=== PATIENT | male | born 1990 | race Caucasian/White ===

== ENCOUNTER 2020-08-21 07:08 | Emergency (ER) | payer OTHER ==
[~2020-08-21] VITALS: Ht 175.3 cm; Wt 104.5 kg
[2020-08-21] MEDS ORDERED: PROPOFOL 1% 20 ML VIAL IVP ONE (07:12)
[2020-08-21] MEDS ORDERED: LIDOCAINE/PF 2% 5 ML VIAL IM ONE (07:12)
[2020-08-21] MEDS ORDERED: SODIUM CHLORIDE 0.9% 1,000 ML IV ONE (07:15)
[2020-08-21] MEDS ORDERED: ONDANSETRON HCL 4 MG/2 ML VIAL IVP ONE (07:15)
[2020-08-21] MEDS ORDERED: LISI-893 PO (07:15)
[2020-08-21] MEDS ORDERED: MAAL30 PO (07:15)
[2020-08-21] MEDS ORDERED: PB/HYOSCY/ATR/SCOP/LIDO/MAALOX 55 ML BOTTLE PO ONE (07:30)
[2020-08-21 07:44] LABS: BASOPHILS % (AUTO) 0.4 % (0.0-2.0); EOSINOPHILS % (AUTO) 1.9 % (1.0-6.0); HEMATOCRIT 43.6 % (41-53); HEMOGLOBIN 14.7 g/dL (13.5-17.5); LYMPHOCYTES # (AUTO) 2.6 K/uL (1.0-4.8); LYMPHOCYTES % (AUTO) 25.4 % (22.0-44.0); MEAN CORPUSCULAR HEMOGLOBIN 28.9 pg (26.0-34.0); MEAN CORPUSCULAR HGB CONC 33.7 G/dL (31.0-37.0); MEAN CORPUSCULAR VOLUME 86 fL (80-100); MONOCYTES % (AUTO) 9.6 % (2.0-9.0); NEUTROPHILS # (AUTO) 6.5 K/uL (1.8-7.7); NEUTROPHILS % (AUTO) 62.7 % (40.0-70.0); PLATELET COUNT (AUTO) 260 K/uL (150-450); RED BLOOD CELL COUNT(AUTO) 5.09 MIL/uL (4.50-5.90); RED CELL DISTRIBUTION WIDTH 12.4 % (11.5-14.5)
[2020-08-21 07:51] LABS: ANION GAP 12 mmol/L (8-16); CALCIUM, TOTAL 9.3 mg/dL (8.8-10.5); CARBON DIOXIDE 28 mmol/L (22-29); CHLORIDE 101 mmol/L (98-107); CREATININE 0.85 mg/dL (0.60-1.30); GLOMERULAR FILTR. RATE CALC > 60 mL/min (>60); GLUCOSE,RANDOM 115 mg/dL (70-110); POTASSIUM 3.9 mmol/L (3.5-5.1); SODIUM SERUM 141 mmol/L (136-145); UREA NITROGEN, BLOOD 12 mg/dL (7-18)
[2020-08-21 07:57] LABS: ALANINE AMINOTRANSFERASE 41 U/L (12-78); ALBUMIN 4.7 g/dL (3.4-5.0); ALKALINE PHOSPHATASE 78 U/L (46-116); ASPARTATE AMINOTRANSFERASE 18 U/L (15-37); BILIRUBIN,TOTAL 0.7 mg/dL (0.1-1.0); LIPASE 70 U/L (73-393); TOTAL PROTEIN, SERUM 8.3 g/dL (6.4-8.2)
[2020-08-21] MEDS ORDERED: DIAZEPAM 5 MG/ML 2 ML SYRINGE IVP ONE (08:00)
[2020-08-21] MEDS ORDERED: SODIUM CHLORIDE 0.9% 1,000 ML ONE (09:37)
[2020-08-21 09:54] LABS: COVID AG,FIA SOURCE NASOPHARYNGEAL
[2020-08-21 12:08] VITALS: BP 120/70
== END 2020-08-21 12:20 | disposition home or self-care (01) ==
LOC: EMS 07:11
DX: T18.128A Food in esophagus causing other injury, initial encounter (principal); I10 Essential (primary) hypertension; F12.90 Cannabis use, unspecified, uncomplicated; Z20.822 Contact with and (suspected) exposure to COVID-19; Z79.899 Other long term (current) drug therapy
CPT/HCPCS: 36415; 80053; 83690; 85025; 87426; 96361; 96374; 96375; 99285; J1885; J2405; J2704; J3490; J7030